=== PATIENT | female | born 1955 | race Caucasian/White ===

== ENCOUNTER 2019-08-23 19:52 | Emergency (ER) | payer MEDICARE ==
[2019-08-23 19:58] VITALS: BP 138/73; PULSE 83; RESP 16; TEMP 98
[2019-08-23] MEDS ORDERED: LIDOCAINE 1% INJ 10MG/ML (20 ML MDV) SQ ONE (20:02)
--- NOTE | 2019-08-23 20:09 | ED ---
Wound/Laceration HPI - General Chief Complaint: Wound/Laceration Stated Complaint: Ear lac Time Seen by Provider: 08/23/19 19:57 Source: patient Mode of arrival: ambulatory Limitations: no limitations - History of Present Illness Initial Comments: Patient is a 64-year-old female presenting to the emergency Department with complaints of a laceration to her right ear that happened today. Patient states she was getting her hair cut at approximately 1 PM today when the hairdresser accidentally cut her right ear with scissors. Patient states she did apply pressure for a couple hours but the wound is still bleeding. Patient denies being on blood thinners. Patient denies any other complaints at this time. Patient states her tetanus vaccine is up-to-date. Upon arrival to the ER, vital signs are stable. - Related Data Home Medications Medication Instructions Recorded Confirmed Antiarthritic Combination No.2 1 tab PO DAILY 02/24/15 02/24/15 [Glucosamine-Chondroitin] DULoxetine HCL [Cymbalta] 30 mg PO DAILY 02/24/15 02/24/15 Losartan/Hydrochlorothiazide 1 tab PO DAILY 02/24/15 02/24/15 [Hyzaar 100-12.5 Tablet] Magnesium 250 mg PO DAILY 02/24/15 02/24/15 Previous Rx's Medication Instructions Recorded predniSONE 60 mg PO DAILY 5 Days tab 02/24/15 Allergies Allergy/AdvReac Type Severity Reaction Status Date / Time pregabalin [From Lyrica] Allergy Hallucinati Verified 08/23/19 19:56 ons Review of Systems ROS Statement: Those systems with pertinent positive or pertinent negative responses have been documented in the HPI. ROS Other: All systems not noted in ROS Statement are negative. Past Medical History Past Medical History: Diabetes Mellitus, Fibromyalgia, Hypertension History of Any Multi-Drug Resistant Organisms: None Reported Past Surgical History: Cholecystectomy Additional Past Surgical History / Comment(s): spinal fusion Past Psychological History: No Psychological Hx Reported Smoking Status: Never smoker Past Alcohol Use History: Rare Past Drug Use History: None Reported General Exam - General Exam Comments Initial Comments: GENERAL: Well-appearing, well-nourished and in no acute distress. HEAD: Atraumatic, normocephalic. EYES: Pupils equal round and reactive to light, extraocular movements intact, sclera anicteric, conjunctiva are normal. ENT: Moist mucous membranes. NECK: Normal range of motion, supple without lymphadenopathy or JVD. LUNGS: Breath sounds clear to auscultation bilaterally and equal. No wheezes rales or rhonchi. HEART: Regular rate and rhythm without murmurs, rubs or gallops. EXTREMITIES: Normal range of motion, no pitting or edema. No clubbing or cyanosis. SKIN: Warm, Dry, normal turgor, no rashes. Patient has a 1 cm flap lesion to the middle right earlobe. Bleeding is minimal at this time. Limitations: no limitations Course Vital Signs 08/23/19 19:54 Temperature 98.0 F Pulse Rate 83 Respiratory 16 Rate Blood Pressure 138/73 O2 Sat by Pulse 98 Oximetry Procedures - Laceration Laceration #1 Consent Obtained: verbal consent Indication: laceration Site: other (Right ear lobe) Size (cm): 1 Description: flap Depth: simple, single layer Anesthetic Used: lidocaine 1% Anesthesia Technique: local infiltration Amount (mls): 1 Pre-repair: irrigated extensively Type of Sutures: nylon Size of Sutures: 5-0 Number of Sutures: 3 Technique: simple, interrupted Patient Tolerated Procedure: well Medical Decision Making - Medical Decision Making Patient is a 64-year-old female presenting with a 1 cm flap laceration to the middle right earlobe. Tetanus is up-to-date. Wound was cleaned and closed with 3, 5-0 sutures. Patient tolerated procedure well. Patient is stable for d ischarge at this time. Sutures need to be removed in 7-10 days. Case discussed with Dr. Lancaster. Disposition Clinical Impression: Laceration of right ear lobe Disposition: HOME SELF-CARE Condition: Stable Instructions (If sedation given, give patient instructions): Care For Your Stitches (ED) Additional Instructions: Please return to the Emergency Department if symptoms worsen or any other concerns. Stitches need to be removed and 7-10 days. May apply topical antibiotic twice a day. Is patient prescribed a controlled substance at d/c from ED?: No Referrals: Nonstaff,Physician [Primary Care Provider] - 1-2 days
== END 2019-08-23 20:45 | disposition home or self-care (01) ==
LOC: EC 19:52
DX: S01.311A Laceration without foreign body of right ear, initial encounter (principal); M79.7 Fibromyalgia; I10 Essential (primary) hypertension; Z88.8 Allergy status to other drugs, medicaments and biological substances; Z79.899 Other long term (current) drug therapy; W45.8XXA Other foreign body or object entering through skin, initial encounter; Y93.89 Activity, other specified
CPT/HCPCS: 99282; 12011; J2001

== ENCOUNTER 2024-03-30 14:16 | Emergency (ER) | payer MEDICARE ==
[2024-03-30 14:21] VITALS: RESP 18; TEMP 98
--- NOTE | 2024-03-30 15:52 | US ---
EXAMINATION TYPE: US venous doppler duplex LE RT DATE OF EXAM: 03/30/2024 3:37 PM COMPARISON: NONE CLINICAL INDICATION: Female, 69 years old with history of pain, recent prolonged travel; Posterior kn ee tightness. No redness or swelling. No hx DVT. Not on blood thinners. SIDE PERFORMED: Right TECHNIQUE: The lower extremity deep venous system is examined utilizing real time linear array sonog katelyn with graded compression, doppler sonography and color-flow sonography. VESSELS IMAGED: Common Femoral Vein Deep Femoral Vein Greater Saphenous Vein * Femoral Vein Popliteal Vein Small Saphenous Vein * Proximal Calf Veins (* superficial vessels) Right Leg: Negative for DVT IMPRESSION: Grayscale, color doppler, spectral doppler imaging performed of the deep veins of the lo wer extremities. There is normal flow, compressibility, vascular waveforms.
--- NOTE | 2024-03-30 16:23 | ED ---
Extremity Problem HPI - General Chief complaint: Extremity Problem,Nontraumatic Stated complaint: R leg US script Time Seen by Provider: 03/30/24 14:32 Source: patient, RN notes reviewed Mode of arrival: ambulatory Limitations: no limitations - History of Present Illness Initial comments: This is a 69-year-old female presents emergency department chief complaint of right calf pain past week. Patient was evaluated at urgent care this afternoon where she was urged report to emergency department to rule out a potential blood clot. States that she did recently have a 5+ hour car ride last week. Patient denies shortness of breath, chest pain, chest pressure, heart palpitations, dizziness, lightheadedness or fatigue. Patient denies history of DVT, PE. Denies use of blood thinners. - Related Data Home Medications Medication Instructions Recorded Confirmed Antiarthritic Combination No.2 1 tab PO DAILY 02/24/15 02/24/15 [Glucosamine-Chondroitin] DULoxetine HCL [Cymbalta] 30 mg PO DAILY 02/24/15 02/24/15 Losartan/Hydrochlorothiazide 1 tab PO DAILY 02/24/15 02/24/15 [Hyzaar 100-12.5 Tablet] Magnesium 250 mg PO DAILY 02/24/15 02/24/15 Previous Rx's Medication Instructions Recorded predniSONE [Deltasone] 60 mg PO DAILY 5 Days tab 02/24/15 Allergies Allergy/AdvReac Type Severity Reaction Status Date / Time pregabalin [From Lyrica] Allergy Hallucinati Verified 03/30/24 14:21 ons Review of Systems ROS Statement: Those systems with pertinent positive or pertinent negative responses have been documented in the HPI. ROS Other: All systems not noted in ROS Statement are negative. Past Medical History Past Medical History: Diabetes Mellitus, Fibromyalgia, Hypertension History of Any Multi-Drug Resistant Organisms: None Reported Past Surgical History: Cholecystectomy Additional Past Surgical History / Comment(s): spinal fusion Past Psychological History: No Psychological Hx Reported Smoking Status: Never smoker Past Alcohol Use History: Rare Past Drug Use History: None Reported General Exam Limitations: no limitations General appearance: alert, in no apparent distress Head exam: Present: atraumatic, normocephalic, normal inspection Eye exam: Present: normal appearance, PERRL, EOMI. Absent: scleral icterus, conjunctival injection, periorbital swelling ENT exam: Present: normal exam, mucous membranes moist Neck exam: Present: normal inspection. Absent: tenderness, meningismus, lymphadenopathy Respiratory exam: Present: normal lung sounds bilaterally. Absent: respiratory distress, wheezes, rales, rhonchi, stridor Cardiovascular Exam: Present: regular rate, normal rhythm, normal heart sounds. Absent: systolic murmur, diastolic murmur, rubs, gallop, clicks GI/Abdominal exam: Present: soft, normal bowel sounds. Absent: distended, tenderness, guarding, rebound, rigid Right Lower Leg exam: Present: normal inspection, tenderness (posterior inferior to popliteal fossa). Absent: swelling, abrasion, crepitus, erythema, palpable cord, Homans' sign Neurovascular tendon exam: Present: no vascular compromise. Absent: pulse deficit, abnormal cap refill, tendon deficit, extremity cold to touch Gait: observed and normal Back exam: Present: normal inspection Neurological exam: Present: alert, oriented X3, CN II-XII intact Psychiatric exam: Present: normal affect, normal mood Course Vital Signs 03/30/24 03/30/24 14:19 17:14 Temperature 98 F Pulse Rate 72 76 Respiratory 18 18 Rate Blood Pressure 176/81 173/86 O2 Sat by Pulse 98 99 Oximetry Medical Decision Making - Medical Decision Making Was pt. sent in by a medical professional or institution (, PA, J[place]ESE PROFESSOR, urgent care, hospital, or [place] [facility] facility...) When possible be specific @ -No Did you speak to anyone other than the patient for history (EMS, parent, family, police, friend...)? What history was obtained from this source @ -No Did you review nursing and triage notes (agree or disagree)? Why? @ -I reviewed and agree with nursing and triage notes Were old charts reviewed (outside hosp., previous admission, EMS record, old EKG, old radiological studies, urgent care reports/EKG's, [place] [facility] facility records)? Report findings @ -No old charts were reviewed Differential Diagnosis (chest pain, altered mental status, abdominal pain women, abdominal pain men, vaginal bleeding, weakness, fever, dyspnea, syncope, headache, dizziness, GI bleed, back pain, seizure, CVA, palpatations, mental health, musculoskeletal)? @ -Differential Musculoskeletal Muscular strain, contusion, ligament sprain, fracture, arthritis, septic arthritis, bursitis, cellulitis, muscle spasm, nerve compression, DVT, arterial occlusion, herpes zoster, electrolyte abnormality, tumor.... This is not meant to be in all inclusive list EKG interpreted by me (3pts min.). @ -none X-rays interpreted by me (1pt min.). @ -None done CT interpreted by me (1pt min.). @ -None done U/S interpreted by me (1pt. min.). @ -duplex ultrasound of the right lower extremity no evidence for DVT. What testing was considered but not performed or refused? (CT, X-rays, U/S, labs)? Why? @ -None What meds were considered but not given or refused? Why? @ -None Did you discuss the management of the patient with other professionals (professionals i.e. , PA, JAPANESE PROFESSOR, lab, RT, psych nurse, social services manager, email campaign manager, teacher, correctional officer captain, field case manager)? Give summary @ -No Was smoking cessation discussed for >3mins.? @ -No Was critical care preformed (if so, how long)? @ -No Were there social determinants of health that impacted care today? How? (Homelessness, low income, unemployed, alcoholism, drug addiction, transportation, low edu. Level, literacy, decrease access to med. care, care home, rehab)? @ -No Was there de-escalation of care discussed even if they declined (Discuss DNR or withdrawal of care, Hospice)? DNR status @ -No What co-morbidities impacted this encounter? (DM, HTN, Smoking, COPD, CAD, Cancer, CVA, ARF, Chemo, Hep., AIDS, mental health diagnosis, sleep apnea, morbid obesity)? @ -None Was patient admitted / discharged? Hospital course, mention meds given and rou te, prescriptions, significant lab abnormalities, going to OR and other pertinent info. @ -Discharge. 69-year-old female with right calf pain. On examination there is no signs of erythema, no palpable cord, negative Homans' sign. Patient's pain in the calf will be sent for an ultrasound of the right lower extremity to rule out DVT. Ultrasound is negative for DVT. Recommend the patient continue to elevate her leg while not ambulating, use compression stockings, and supportive treatment at home with Tylenol and Motrin. All questions answered at bedside and strict return parameters discussed with the patient and she has verbalized understanding. Case discussed with Dr. Roman. Undiagnosed new problem with uncertain prognosis? @ -No Drug Therapy requiring intensive monitoring for toxicity (Heparin, Nitro, Insulin, Cardizem)? @ -No Were any procedures done? @ -No Diagnosis/symptom? @ -muscle strain, calf pain Acute, or Chronic, or Acute on Chronic? @ -Acute Uncomplicated (without systemic symptoms) or Complicated (systemic symptoms)? @ -uncomplicated Side effects of treatment? @ -No Exacerbation, Progression, or Severe Exacerbation? @ -No Poses a threat to life or bodily function? How? (Chest pain, [place], [place], pneumonia, PE, COPD, DKA, ARF, appy, cholecystitis, CVA, Diverticulitis, Homicidal, Suicidal, threat to staff... and all critical care pts) @ -No Disposition Clinical Impression: Muscle strain, Calf pain Disposition: HOME SELF-CARE Condition: Good Instructions (If sedation given, give patient instructions): Muscle Strain (ED) Additional Instructions: Return to the emergency department for any new or worsening symptoms. Recommend follow-up with your primary care provider next week for further evaluation. Is patient prescribed a controlled substance at d/c from ED?: No Referrals: Nonstaff,Physician [Primary Care Provider] - 1-2 days Time of Disposition: 16:23
[2024-03-30 17:15] VITALS: BP 173/86; PULSE 76
== END 2024-03-30 17:17 | disposition home or self-care (01) ==
LOC: EC 14:16
DX: S86.911A Strain of unspecified muscle(s) and tendon(s) at lower leg level, right leg, initial encounter (principal); Z88.8 Allergy status to other drugs, medicaments and biological substances; X58.XXXA Exposure to other specified factors, initial encounter
CPT/HCPCS: 99283